=== PATIENT | male | born 1955 | race Caucasian/White ===

== ENCOUNTER 2023-12-14 11:52 | Observation (INO) ==
[2023-12-14 12:28] LABS: iSTAT Hemoglobin 15.3 g/dl (14.0-18.0); iSTAT Ionized Calcium 1.24 mmol/l (1.12-1.32); iSTAT Potassium 4.3 mmol/L (3.3-5.0)
[2023-12-14 12:34] LABS: Basophils # (auto) 0.03 K/uL (0.00-0.20); Basophils % (auto) 0.4 %; Eosinophils # (auto) 0.16 K/uL (0.00-0.50); Eosinophils % (auto) 2.2 %; Hematocrit (blood only) 45.6 % (42.0-52.0); Hemoglobin 14.9 g/dl (14.0-18.0); Immature Granulocytes # (auto) 0.02 K/uL (0.01-0.20); Immature Granulocytes % (auto) 0.3 %; Lymphocytes # (auto) 1.71 K/uL (1.20-3.40); Lymphocytes % (auto) 23.5 %; Mean Corpuscular Hgb Conc 32.7 g/dL (32.0-36.0); Mean Corpuscular Volume 88.7 fL (80.0-100.0); Mean Platelet Volume 10.1 fL (9.4-12.4); Monocytes # (auto) 0.48 K/uL (0.11-0.59); Monocytes % (auto) 6.6 %; Neutrophils # (auto) 4.88 K/uL (1.40-6.50); Platelet Count 215 K/uL (130-400); RDW Standard Deviation 42.3 fL (36.4-46.3); Red Blood Count 5.14 M/uL (4.70-6.10); White Blood Count 7.28 K/ul (4.8-10.8)
--- NOTE | 2023-12-14 12:35 | Emergency Department Note ---
Impression & Plan Right facial numbness, Hypertension, Stroke-like symptoms, Dizziness ED Provider Note NAME: WERNER GARCIA AGE: 68 SEX: M : 1955 ARRIVES VIA: Ambulance INFORMANT: [Patient][] ED PROVIDER(S): [Jairo Aguirre MD] CHIEF COMPLAINT: TIA symptoms HISTORY OF PRESENT ILLNESS: The patient is a 68-year-old male who states that 2-1/2 hours ago he was sitting at [facility]. He noticed some numbness to his right face. The patient got up and was walking around and felt his right leg may have been weaker than the left. EMS was summoned. His blood pressure was high, his blood sugar was high. He was brought to the ER. He does feel better than earlier. The patient states that he has been dizzy for a few weeks. He did see his doctor's office for the dizziness and was told that things were okay. Yesterday when driving to this area his right foot felt stiff and he had to stop driving and hand over the wheel to his . He did feel dizzy yesterday as well. Patient has no diagnosis of hypertension or diabetes. He has never had a stroke or TIA. As per nursing staff, stroke scale value was 0. PMHx/PSHx/Social Hx: See Below PHYSICAL EXAM: GENERAL: Patient is in no acute distress. HEENT: No acute trauma, normocephalic atraumatic, mucous membranes moist, no nasal congestion. NECK: No stridor, no adenopathy, no meningismus, trachea is midline. LUNGS: Clear to auscultation bilaterally, no wheeze, no rhonchi, breath sounds equal. HEART: Without murmurs gallops or rubs, regular rate and rhythm. ABDOMEN: Soft, nontender, no peritonitis. EXTREMITIES: No cyanosis, full range of motion of all the joints without pain or difficulty. NEUROLOGIC: Oriented x 3, no acute motor or sensory deficits, no focal weakness. No cerebellar deficits or extremity drift. No speech slur or facial droop. Excellent historian. SKIN: No jaundice, no diaphoresis. DIFFERENTIAL DIAGNOSIS: TIA, CVA, intracranial bleeding, hypertension, electrolyte imbalance, anemia, dysrhythmia, among others. EMERGENCY DEPARTMENT PROCEDURES: MEDICAL DECISION MAKING: There is no leukocytosis or concerning anemia. There is a normal platelet count. No coagulopathy. No renal failure or significant electrolyte abnormality. No concerning liver enzyme elevation. ECG shows a sinus rhythm, no dysrhythmia or ischemia. Cardiac enzyme testing x 1 is not consistent with acute cardiac injury. Brain CT shows no acute bleed or mass effect. CT angio of the head and neck were performed, there was no stenosis or clot seen. On exam, patient had a stroke scale value of 0. His numbness had greatly improved. He was hypertensive. The patient was not a candidate for TNK. His symptoms had improved, stroke scale value was 0, he actually has been complaining of some issues with dizziness for weeks--far greater than 3 hours. Patient did receive IV labetalol for his high blood pressure. He was eventually given a dose of IV hydralazine. As he passed his swallow study, he received oral aspirin 324 mg. I talked to the patient about his findings. I am concerned for a TIA or possible small stroke not seen on CT scan. I do think a hospital stay is warranted. Patient's blood pressure has improved with the medications administered. I did speak with the case management team, the on-call hospitalist has been consulted. Prior/Outside records/notes reviewed: Today's EMS notes describing his presentation and transport to this hospital. ECG per my interpretation: Indication was possible stroke. The ECG shows a normal sinus rhythm with a rate of 65. There is no ST elevation, no PVCs. The QTc is 384. Continuous Cardiac Monitoring per my interpretation: An order was placed for continuous cardiac monitoring. The monitor shows a rate of 67 with normal sinus rhythm. Imaging/x-ray results per my interpretation: Chronic Medical/Social conditions affecting care: Care/Management discussed with: Case management, the on-call hospitalist. Level of care consideration(s): After review of the information above and other included data: --I believe the patient requires escalation of care to admission Critical Care Note: I have personally spent 47 minutes of critical care time in the direct management of this patient. This includes bedside care, interpretation of diagnostic studies, and testing, discussion with consultants, patient, and family members, and other required patient management activities. This 47 minutes is in excess of all separately billable procedures. DISPOSITION: Admission Past Med/Surg History Medical History GERD (gastroesophageal reflux disease) Surgical History (Updated 12/14/23 @ 15:06 by CELSO Hansen) No pertinent past surgical history Family History (Updated 12/14/23 @ 15:56 by CELSO Hansen) Mother TIA (transient ischemic attack) Sister Deep vein thrombosis Social History Smoking Status: Never smoker Preferred Language: Hungarian Feels Safe at Home: Yes Allergies Allergies Allergy/AdvReac Type Severity Reaction Status Date / Time No Known Allergies Allergy Unverified 12/14/23 14:08 Home Meds Home Medications Medication Instructions Recorded Confirmed cetirizine 10 mg tablet (Zyrtec) 10 mg PO DAILY PRN Allergy Symptoms 12/14/23 12/14/23 omeprazole 40 mg capsule,delayed 40 mg PO DAILYBB 12/14/23 12/14/23 release Results & Data (ED) Vital Signs Vital Signs - 24 hr 12/14/23 11:57 12/14/23 12:02 12/14/23 12:57 Temperature 36.5 C Temperature Source Oral Pulse Rate 63 67 68 Pulse Rate [Left] Pulse Rhythm Regular Pulse Rhythm [Left] Pulse Strength Normal Pulse Strength [Left] Respiratory Rate 16 Respiratory Effort / Characteristics Non-Labored Respiratory Depth Normal Respiratory Pattern Regular Blood Pressure 170/119 H 168/101 H Blood Pressure [Right Arm] Blood Pressure Mean 136 Blood Pressure Mean [Right Arm] Blood Pressure Position Sitting Blood Pressure Position [Right Arm] Pulse Oximetry 100 Oxygen Delivery Method Room Air Sepsis Recent Fever Within 48 Hours No Sepsis New/Unexplained Change in Mental Status No Sepsis Action Taken by Nursing No Action Required 12/14/23 13:00 12/14/23 13:05 12/14/23 13:10 Temperature Temperature Source Pulse Rate Pulse Rate [Left] 64 66 61 Pulse Rhythm Pulse Rhythm [Left] Regular Regular Regular Pulse Strength Pulse Strength [Left] Normal Normal Normal Respiratory Rate 18 18 17 Respiratory Effort / Characteristics Non-Labored Non-Labored Non-Labored Respiratory Depth Normal Normal Normal Respiratory Pattern Regular Regular Regular Blood Pressure Blood Pressure [Right Arm] 178/109 H 158/101 H 151/102 H Blood Pressure Mean Blood Pressure Mean [Right Arm] 132 120 118 Blood Pressure Position Blood Pressure Position [Right Arm] Sitting Sitting Sitting Pulse Oximetry 98 98 98 Oxygen Delivery Method Room Air Room Air Room Air Sepsis Recent Fever Within 48 Hours Sepsis New/Unexplained Change in Mental Status Sepsis Action Taken by Nursing 12/14/23 13:20 Temperature Temperature Source Pulse Rate Pulse Rate [Left] 60 Pulse Rhythm Pulse Rhythm [Left] Regular Pulse Strength Pulse Strength [Left] Normal Respiratory Rate 18 Respiratory Effort / Characteristics Non-Labored Respiratory Depth Normal Respiratory Pattern Regular Blood Pressure Blood Pressure [Right Arm] 176/109 H Blood Pressure Mean Blood Pressure Mean [Right Arm] 131 Blood Pressure Position Blood Pressure Position [Right Arm] Sitting Pulse Oximetry 98 Oxygen Delivery Method Room Air Sepsis Recent Fever Within 48 Hours Sepsis New/Unexplained Change in Mental Status Sepsis Action Taken by Detention Medications Current Medication List: was personally reviewed by me Laboratory Data Attestation: I reviewed the patient's lab results. 12/14/23 12:08 12/14/23 12:08 Lab Results 12/14/23 12/14/23 Range/Units 12:08 12:15 WBC 7.28 (4.8-10.8) K/ul RBC 5.14 (4.70-6.10) M/uL Hgb 14.9 (14.0-18.0) g/dl POC Hgb 15.3 (14.0-18.0) g/dl Hct 45.6 (42.0-52.0) % POC Hct 45 (42-52) % MCV 88.7 (80.0-100.0) fL MCH 29.0 (25.0-34.0) pg MCHC 32.7 (32.0-36.0) g/dL RDW Std Deviation 42.3 (36.4-46.3) fL RDW Coeff of Winter 13.0 (11.5-14.5) % Plt Count 215 (130-400) K/uL MPV 10.1 (9.4-12.4) fL Immature Gran % (Auto) 0.3 % Neut % (Auto) 67.0 % Lymph % (Auto) 23.5 % Allen % (Auto) 6.6 % Eos % (Auto) 2.2 % Baso % (Auto) 0.4 % Neut # (Auto) 4.88 (1.40-6.50) K/uL Lymph # (Auto) 1.71 (1.20-3.40) K/uL Allen # (Auto) 0.48 (0.11-0.59) K/uL Eos # (Auto) 0.16 (0.00-0.50) K/uL Baso # (Auto) 0.03 (0.00-0.20) K/uL Immature Gran # (Auto) 0.02 (0.01-0.20) K/uL PT 11.0 (9.0-12.0) Seconds INR 1.0 (0.9-1.1) APTT 26 (21-31) Seconds PTT Ratio 1.0 POC Sodium 142 (135-144) mmol/L Sodium 142 (136-145) mmol/L POC Potassium 4.3 (3.3-5.0) mmol/L Potassium 4.2 (3.5-5.1) mmol/L POC Chloride 103 (101-112) mmol/L Chloride 107 (98-107) mmol/L Carbon Dioxide 30 (21-32) mmol/L POC Total CO2 28 (24-31) mmol/L Anion Gap 5 (3-11) POC Anion Gap 17.0 (16-25) mmol/L POC BUN 13 (7-18) mg/dl BUN 12 (6-23) mg/dl Creatinine 0.95 (0.6-1.4) mg/dl POC Creatinine 1.0 (0.6-1.3) mg/dl Est Cr Clr Drug Dosing 71.5 ml/min Est GFR ( Amer) 96.3 ml/min Est GFR (Non-Af Amer) 83.1 ml/min BUN/Creatinine Ratio 12.6 (10-20) Glucose 124 H (70-99(Fasting)) mg/dl POC Glucose (other) 148 H (70-99) mg/dl Calcium 9.1 (8.6-10.3) mg/dl POC Ioniz Calcium Susannah 1.24 (1.12-1.32) mmol/l Magnesium 2.0 (1.7-2.4) mg/dl Total Bilirubin 0.5 (0.2-1.0) mg/dl AST 16 (13-39) U/L ALT 15 (7-52) U/L Alkaline Phosphatase 63 (34-104) U/L Troponin I High Sens 4.5 (0-20) pg/ml Total Protein 6.7 (6.0-8.3) gm/dl Albumin 4.4 (3.4-5.0) gm/dl Globulin 2.3 L (2.5-4.0) gm/dl Albumin/Globulin Ratio 1.9 (0.9-2) Administered Medications Discontinued Medications Aspirin (Aspirin Chew 324 Mg) 324 mg PO NOW STA Stop: 12/14/23 13:53 Last Admin: 12/14/23 14:04 Dose: 324 mg Documented By: NH Hydralazine HCl (Hydralazine Hcl 20 Mg/Ml Vial) 10 mg IV NOW STA Stop: 12/14/23 13:53 Last Admin: 12/14/23 14:04 Dose: 10 mg Documented By: NH Ioversol (Optiray 320 125ml) 119 ml IV ONCE ONE Stop: 12/14/23 12:58 Last Admin: 12/14/23 12:57 Dose: 119 ml Documented By: MIRELLA Labetalol HCl (Labetalol Hcl Iv 5 Mg/Ml 20ml) 10 mg IV NOW STA Stop: 12/14/23 12:33 Last Admin: 12/14/23 12:57 Dose: 10 mg Documented By: SHARMIN Co-signed By: JAJA Imaging Data Radiologist's Impression: Head CT 12/14/23 12:[address] OF THE BRAIN; CT ANGIOGRAM OF THE BRAIN; CT ANGIOGRAM OF THE NECK CLINICAL HISTORY: Neurological deficit. Stroke like symptoms. Right-sided weakness. COMPARISON STUDY: No priors. TECHNIQUE: Unenhanced axial CT scan of the brain is performed. Subsequently, following the IV administration of 119 of Optiray 320, CT angiogram of the head and neck was performed from the aortic arch to the vertex. Images are reviewed in the axial, sagittal, and coronal planes. 3-D MIPS images are created and assessed. IV contrast was administered without complication. All measurements were calculated based on NASCET criteria. A dose lowering technique was utilized adhering to the principles of ALARA. CT DOSE: 1253.12 mGy.cm FINDINGS: Brain parenchyma: There is age-related involutional change noting mild to moderate subcortical and periventricular microangiopathic disease. There is no hemorrhage, mass effect, or evidence of acute territorial ischemia by CT criteria. There is no evidence of enhancing mass lesion on the angiogram phase images. The ventricles, sulci, and cisterns are prominent secondary to involutional change. Schaffer-white matter differentiation is preserved. No extra- axial fluid collection is seen. Thoracic aorta: Visualized portions of the thoracic aorta are normal in caliber. The aortic arch demonstrates 4-vessel variant anatomy. The left vertebral artery arises directly from the thoracic aorta. Right carotid arterial system: The right common carotid artery is widely patent, as are the right internal and external carotid arteries. Left carotid arterial system: The left common carotid artery is widely patent, as are the left internal and external carotid arteries. Minimal calcified plaque is seen in the carotid bulb. Vertebral arteries: Widely patent bilaterally noting right-sided dominance. Subclavian arteries: Widely patent bilaterally. Intracranial vasculature: The internal carotid arteries are patent at the skull base, as are the anterior and middle cerebral arteries bilaterally. The vertebrobasilar system and posterior cerebral arteries are widely patent. The right vertebral artery is dominant. There is origin of the right posterior cerebral artery. There is no aneurysm, high-grade stenosis, or focal vessel cut off seen throughout the intracranial circulation. Jugular veins: Patent bilaterally. Dural sinuses: Patent. Lung apices: Partially visualized upper lobe lung parenchyma appears clear. Soft tissues: The visualized pharyngeal soft tissues are normal in appearance noting angiographic phase technique. The oropharyngeal airway appears widely patent. The heterogeneous right lobe thyroid nodule measures up to 2.5 cm. The salivary glands are normal in appearance. No cervical lymphadenopathy is seen. Skeletal structures: The calvarium appears intact. The cervical spine is within normal limits. Orbits: The bony orbits are intact. Orbital contents are normal as visualized. Sinuses and mastoids: There is mild mucosal thickening within the maxillary antra noting air fluid level on the right. Mild mucosal thickening is also seen within the frontal and ethmoid sinuses. There is trace mucosal thickening in the sphenoid sinuses. The mastoid air cells are well pneumatized. IMPRESSION: 1. There is no hemorrhage, mass effect, or evidence of acute territorial ischemia by CT criteria. 2. Unremarkable CT angiogram of the brain. 3. Unremarkable CT angiogram of the neck. 4. There is a 2.5 cm right lobe thyroid nodule. A nonemergent thyroid ultrasound is recommended in follow-up. ACT 112: Negative or not required by law. Electronically signed by: Jairo Charles M.D. 12/14/2023 1:13 PM Head CTA 12/14/23 12:[address] OF THE BRAIN; CT ANGIOGRAM OF THE BRAIN; CT ANGIOGRAM OF THE NECK CLINICAL HISTORY: Neurological deficit. Stroke like symptoms. Right-sided weakness. COMPARISON STUDY: No priors. TECHNIQUE: Unenhanced axial CT scan of the brain is performed. Subsequently, following the IV administration of 119 of Optiray 320, CT angiogram of the head and neck was performed from the aortic arch to the vertex. Images are reviewed in the axial, sagittal, and coronal planes. 3-D MIPS images are created and assessed. IV contrast was administered without complication. All measurements were calculated based on NASCET criteria. A dose lowering technique was utilized adhering to the principles of ALARA. CT DOSE: 1253.12 mGy.cm FINDINGS: Brain parenchyma: There is age-related involutional change noting mild to moderate subcortical and periventricular microangiopathic disease. There is no hemorrhage, mass effect, or evidence of acute territorial ischemia by CT criteria. There is no evidence of enhancing mass lesion on the angiogram phase images. The ventricles, sulci, and cisterns are prominent secondary to involutional change. Schaffer-white matter differentiation is preserved. No extra- axial fluid collection is seen. Thoracic aorta: Visualized portions of the thoracic aorta are normal in caliber. The aortic arch demonstrates 4-vessel variant anatomy. The left vertebral artery arises directly from the thoracic aorta. Right carotid arterial system: The right common carotid artery is widely patent, as are the right internal and external carotid arteries. Left carotid arterial system: The left common carotid artery is widely patent, as are the left internal and external carotid arteries. Minimal calcified plaque is seen in the carotid bulb. Vertebral arteries: Widely patent bilaterally noting right-sided dominance. Subclavian arteries: Widely patent bilaterally. Intracranial vasculature: The internal carotid arteries are patent at the skull base, as are the anterior and middle cerebral arteries bilaterally. The vertebrobasilar system and posterior cerebral arteries are widely patent. The right vertebral artery is dominant. There is origin of the right posterior cerebral artery. There is no aneurysm, high-grade stenosis, or focal vessel cut off seen throughout the intracranial circulation. Jugular veins: Patent bilaterally. Dural sinuses: Patent. Lung apices: Partially visualized upper lobe lung parenchyma appears clear. Soft tissues: The visualized pharyngeal soft tissues are normal in appearance noting angiographic phase technique. The oropharyngeal airway appears widely patent. The heterogeneous right lobe thyroid nodule measures up to 2.5 cm. The salivary glands are normal in appearance. No cervical lymphadenopathy is seen. Skeletal structures: The calvarium appears intact. The cervical spine is within normal limits. Orbits: The bony orbits are intact. Orbital contents are normal as visualized. Sinuses and mastoids: There is mild mucosal thickening within the maxillary antra noting air fluid level on the right. Mild mucosal thickening is also seen within the frontal and ethmoid sinuses. There is trace mucosal thickening in the sphenoid sinuses. The mastoid air cells are well pneumatized. IMPRESSION: 1. There is no hemorrhage, mass effect, or evidence of acute territorial ischemia by CT criteria. 2. Unremarkable CT angiogram of the brain. 3. Unremarkable CT angiogram of the neck. 4. There is a 2.5 cm right lobe thyroid nodule. A nonemergent thyroid ultrasound is recommended in follow-up. ACT 112: Negative or not required by law. Electronically signed by: Jairo Charles M.D. 12/14/2023 1:13 PM Neck CTA 12/14/23 12:[address] OF THE BRAIN; CT ANGIOGRAM OF THE BRAIN; CT ANGIOGRAM OF THE NECK CLINICAL HISTORY: Neurological deficit. Stroke like symptoms. Right-sided weakness. COMPARISON STUDY: No priors. TECHNIQUE: Unenhanced axial CT scan of the brain is performed. Subsequently, following the IV administration of 119 of Optiray 320, CT angiogram of the head and neck was performed from the aortic arch to the vertex. Images are reviewed in the axial, sagittal, and coronal planes. 3-D MIPS images are created and assessed. IV contrast was administered without complication. All measurements were calculated based on NASCET criteria. A dose lowering technique was utilized adhering to the principles of ALARA. CT DOSE: 1253.12 mGy.cm FINDINGS: Brain parenchyma: There is age-related involutional change noting mild to moderate subcortical and periventricular microangiopathic disease. There is no hemorrhage, mass effect, or evidence of acute territorial ischemia by CT criteria. There is no evidence of enhancing mass lesion on the angiogram phase images. The ventricles, sulci, and cisterns are prominent secondary to involutional change. Schaffer-white matter differentiation is preserved. No extra- axial fluid collection is seen. Thoracic aorta: Visualized portions of the thoracic aorta are normal in caliber. The aortic arch demonstrates 4-vessel variant anatomy. The left vertebral artery arises directly from the thoracic aorta. Right carotid arterial system: The right common carotid artery is widely patent, as are the right internal and external carotid arteries. Left carotid arterial system: The left common carotid artery is widely patent, as are the left internal and external carotid arteries. Minimal calcified plaque is seen in the carotid bulb. Vertebral arteries: Widely patent bilaterally noting right-sided dominance. Subclavian arteries: Widely patent bilaterally. Intracranial vasculature: The internal carotid arteries are patent at the skull base, as are the anterior and middle cerebral arteries bilaterally. The vertebrobasilar system and posterior cerebral arteries are widely patent. The right vertebral artery is dominant. There is origin of the right posterior cerebral artery. There is no aneurysm, high-grade stenosis, or focal vessel cut off seen throughout the intracranial circulation. Jugular veins: Patent bilaterally. Dural sinuses: Patent. Lung apices: Partially visualized upper lobe lung parenchyma appears clear. Soft tissues: The visualized pharyngeal soft tissues are normal in appearance noting angiographic phase technique. The oropharyngeal airway appears widely patent. The heterogeneous right lobe thyroid nodule measures up to 2.5 cm. The salivary glands are normal in appearance. No cervical lymphadenopathy is seen. Skeletal structures: The calvarium appears intact. The cervical spine is within normal limits. Orbits: The bony orbits are intact. Orbital contents are normal as visualized. Sinuses and mastoids: There is mild mucosal thickening within the maxillary antra noting air fluid level on the right. Mild mucosal thickening is also seen within the frontal and ethmoid sinuses. There is trace mucosal thickening in the sphenoid sinuses. The mastoid air cells are well pneumatized. IMPRESSION: 1. There is no hemorrhage, mass effect, or evidence of acute territorial ischemia by CT criteria. 2. Unremarkable CT angiogram of the brain. 3. Unremarkable CT angiogram of the neck. 4. There is a 2.5 cm right lobe thyroid nodule. A nonemergent thyroid ultrasound is recommended in follow-up. ACT 112: Negative or not required by law. Electronically signed by: Jairo Charles M.D. 12/14/2023 1:13 PM Discharge Plan Visit Data Chief Complaint: TIA Symptoms Stated Complaint: TIA SYMPTOMS ED Provider: Jairo Aguirre Discharge Problem: Right facial numbness, Hypertension, Stroke-like symptoms, Dizziness Patient Disposition: Admitted As Inpatient Condition: Fair Discharge Instructions Interventions: ED Discharge Assessment Last Done: 12/14/23 15:43 Discharge Problem: Hypertension Qualifiers: Hypertension type: unspecified Qualified Code(s): I10 - Essential (primary) hypertension
[2023-12-14 12:37] LABS: Partial Thromboplastin Time 26 Seconds (21-31)
[2023-12-14 12:55] LABS: Albumin Globulin Ratio 1.9 (0.9-2); Albumin Level 4.4 gm/dl (3.4-5.0); BUN Creatinine Ratio 12.6 (10-20); Bilirubin,Total 0.5 mg/dl (0.2-1.0); Calcium 9.1 mg/dl (8.6-10.3); Creatinine Clr Calc Pharmacy 71.5 ml/min; Est GFR (African American) 96.3 ml/min; Est GFR (Non-African American) 83.1 ml/min; Globulin 2.3 gm/dl (2.5-4.0); Potassium 4.2 mmol/L (3.5-5.1); Total Protein 6.7 gm/dl (6.0-8.3)
[2023-12-14] MEDS: OPTIRAY 320 125ml IV ONE (12:57)
[2023-12-14] MEDS: LABETALOL HCL IV 5 MG/ML 20ML IV STA (12:57)
[2023-12-14 13:01] LABS: Troponin I High Sensitivity 4.5 pg/ml (0-20)
--- NOTE | 2023-12-14 13:14 | CT Scan Report ---
UNENHANCED CT OF THE BRAIN; CT ANGIOGRAM OF THE BRAIN; CT ANGIOGRAM OF THE NECK CLINICAL HISTORY: Neurological deficit. Stroke like symptoms. Right-sided weakness. COMPARISON STUDY: No priors. TECHNIQUE: Unenhanced axial CT scan of the brain is performed. Subsequently, following the IV adminis tration of 119 of [address] [address], CT angiogram of the head and neck was performed from the aortic arch t o the vertex. Images are reviewed in the axial, sagittal, and coronal planes. 3-D MIPS images are cre ated and assessed. IV contrast was administered without complication. All measurements were calculate d based on NASCET criteria. A dose lowering technique was utilized adhering to the principles of ALA RA. 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 There is no hemorrhage, mass effect, or evidence of acute ter ritorial ischemia by CT criteria. There is no evidence of enhancing mass lesion on the angiogram phas e images. The ventricles, sulci, and cisterns are prominent secondary to involutional change. Schaffer-wh ite matter differentiation is preserved. No extra-axial fluid collection is seen. Thoracic aorta: Visualized portions of the thoracic aorta are normal in caliber. The aortic arch demo nstrates 4-vessel variant anatomy. The left vertebral artery arises directly from the thoracic aorta. Right carotid arterial system: The right common carotid artery is widely patent, as are the right int ernal and external carotid arteries. Left carotid arterial system: The left common carotid artery is widely patent, as are the left exercise science internship al and external carotid arteries. Minimal calcified plaque is seen in the carotid bulb. Vertebral arteries: Widely patent bilaterally noting right-sided dominance. Subclavian arteries: Widely patent bilaterally. Intracranial vasculature: The internal carotid arteries are patent at the skull base, as are the ante rior and middle cerebral arteries bilaterally. The vertebrobasilar system and posterior cerebral idris joe are widely patent. The right vertebral artery is dominant. There is origin of the right po sterior cerebral artery. There is no aneurysm, high-grade stenosis, or focal vessel cut off seen thro ughout the intracranial circulation. Jugular veins: Patent bilaterally. Dural sinuses: Patent. Lung apices: Partially visualized upper lobe lung parenchyma appears clear. Soft tissues: The visualized pharyngeal soft tissues are normal in appearance noting angiographic pha se technique. The oropharyngeal airway appears widely patent. The heterogeneous right lobe thyroid no dule measures up to 2.5 cm. The salivary glands are normal in appearance. No cervical lymphadenopathy is seen. Skeletal structures: The calvarium appears intact. The cervical spine is within normal limits. Orbits: The bony orbits are intact. Orbital contents are normal as visualized. Sinuses and mastoids: There is mild mucosal thickening within the maxillary antra noting air fluid le eiljah on the right. Mild mucosal thickening is also seen within the frontal and ethmoid sinuses. There is trace mucosal thickening in the sphenoid sinuses. The mastoid air cells are well pneumatized. IMPRESSION: 1. There is no hemorrhage, mass effect, or evidence of acute territorial ischemia by CT criteria. 2. Unremarkable CT angiogram of the brain. 3. Unremarkable CT angiogram of the neck. 4. There is a 2.5 cm right lobe thyroid nodule. A nonemergent thyroid ultrasound is recommended in fo llow-up. ACT 112: Negative or not required by law. Electronically signed by: Jairo Charles M.D. 12/14/2023 1:13 PM
[2023-12-14] MEDS: hydrALAZINE HCL 20 MG/ML VIAL IV STA (14:04)
[2023-12-14] MEDS: ASPIRIN CHEW 324 MG PO STA (14:04)
--- NOTE | 2023-12-14 15:14 | History & Physical Report ---
Date of Service December 14, 2023 Assessment & Plan (1) Stroke-like symptoms: Plan: Admit to telemetry Patient presenting for evaluation of dizziness, right facial numbness, right leg ataxia; symptoms now mostly resolved. Saw PCP last week for complaints of dizziness and per patient "had normal blood work and exam". In the ED, patient hypertensive with BP 170/119 -received IV labetalol 10 mg and IV hydralazine [address], head and neck CTAs unremarkable Brain MRI - There is an equivocal punctate focus of restricted diffusion in the inferior right cerebellar hemisphere. This may be artifactual. A tiny acute to subacute lacunar infarct is not excluded. Check lipid panel and A1c with a.m. labs Echo Neurology consult, input appreciated S/p full dose aspirin in ED, continue with ASA 81 mg and Plavix 75 mg daily Start atorvastatin 40 mg Likely can add antihypertensive tomorrow, allowing for permissive hypertension for now Patient is from out [facility] ([place]), will need close follow-up (2) Thyroid nodule: Plan: Neck CTA shows 2.5 cm right lobe thyroid nodule Outpatient thyroid ultrasound (3) GERD (gastroesophageal reflux disease): Plan: Continue PPI DVT PROPHYLAXIS SCDs Patient seen in collaboration with Dr. Duvall. I spent a total of 90 minutes coordinating, documenting, and providing care for this patient excluding time spent in the performance of separately billed services. This included personally reviewing all current laboratories and imaging studies, medication reconciliation, outpatient chart review, and discussion with specialists. (4) Hypertension: History of Present Illness Chief Complaint: Strokelike symptoms Primary Care Provider: Waldemar Figueredo PA-C 68-year-old male with PMH GERD, seasonal allergies, who presents to the ED for evaluation of strokelike symptoms. History is obtained by the patient. Patient is visiting from out [facility] for graduation weekend. He states that about 2 weeks ago, he started to have episodes of dizziness. He was evaluated by his PCP last week and had a "normal exam and blood work" per the patient. Yesterday while driving from [place], patient reports his right foot started to feel heavy and "stiff" and had to stop driving. Patient reports feeling slightly "off" since yesterday. Today, around 1015 while attending a graduation ceremony, patient had stood up and noticed his right leg was uncoordinated when he tried to walk. He had to hold on to the wall to walk. He also reports the right side of his face was numb. EMS was called after the ceremony ended (around 1200) and patient was brought to the ED for further evaluation. Patient reports his symptoms have almost completely resolved however the right side of his face "f eels like Novocaine is wearing off". Patient denies chest pain, shortness of breath. No other recent illnesses, fevers, chills. Denies abdominal pain, nausea, vomiting, diarrhea. No urinary symptoms. In the ED, patient was hypertensive at 170/119. Labs are unremarkable. Head CT, head and neck CTAs unremarkable. Patient was given full dose aspirin, IV hydralazine 10 mg, IV labetalol 10 mg. Allergies Allergy/AdvReac Type Severity Reaction Status Date / Time No Known Allergies Allergy Unverified 12/14/23 14:08 Home Medications Medication Instructions Recorded Confirmed Type cetirizine 10 mg tablet (Zyrtec) 10 mg PO DAILY PRN Allergy Symptoms 12/14/23 12/14/23 History omeprazole 40 mg capsule,delayed 40 mg PO DAILYBB 12/14/23 12/14/23 History release Past Med/Surg History Medical History GERD (gastroesophageal reflux disease) Surgical History No pertinent past surgical history Family History Mother TIA (transient ischemic attack) Sister Deep vein thrombosis Social History Smoking Status: Never smoker Hx Alcohol Use: Yes Alcohol type: beer, wine and hard liquor Hx Substance Use: No Preferred Language: Swedish Communication Ability: Effective Sterilization Technician Required: No Beliefs That Will Affect Care: None Current Living Situation: Spouse Other Information That Helps Us Care for You: No Feels Safe at Home: Yes Safety Concerns: Feels Safe At This Time Assistive Devices: Glasses Physical Exam Constitutional: WD/WN, vitals as above no acute distress Eyes: PERRL, conjunctivae normal, anicteric sclerae ENMT: external ear and nose normal, oropharynx normal Respiratory: normal respiratory effort, lungs clear to auscultation Cardiovascular: Rate/Rhythm: regular rate and regular rhythm Vessels: normal peripheral pulses Extremities: no edema Gastrointestinal (Abdomen): normal bowel sounds, soft, nontender, no hepatosplenomegaly Musculoskeletal: no cyanosis or clubbing, extremities motor strength 5/5 Skin: no rashes, warm and dry Neurologic: PERRL, EOMI, accommodation nl, no face palsy, no dysarthria moves all extremities; no focal motor deficits Motor/Sensory: no pronator drift Cranial Nerves: tongue midline Coordination: normal [id number] test and normal nezf-[id number] test Psychiatric: A+Ox3, euthymic affect Results & Data Results & Data Vital Signs (Past 12 Hours) Vital Signs Temp Pulse Pulse Resp BP BP Pulse Ox 12/14/23 14:20 66 18 138/98 98 12/14/23 14:11 163/102 H 12/14/23 13:20 60 18 176/109 H 98 12/14/23 13:10 61 17 151/102 H 98 12/14/23 13:05 66 18 158/101 H 98 12/14/23 13:00 64 18 178/109 H 98 12/14/23 12:57 68 168/101 H 12/14/23 12:02 67 12/14/23 11:57 36.5 C 63 16 170/119 H 100 O2 Del Method 12/14/23 14:20 Room Air 12/14/23 14:11 12/14/23 13:20 Room Air 12/14/23 13:10 Room Air 12/14/23 13:05 Room Air 12/14/23 13:00 Room Air 12/14/23 12:57 12/14/23 12:02 12/14/23 11:57 Room Air Laboratory Results Short CBC 12/14/23 Range/Units 12:08 WBC 7.28 (4.8-10.8) K/ul Hgb 14.9 (14.0-18.0) g/dl Hct 45.6 (42.0-52.0) % Plt Count 215 (130-400) K/uL BMP 12/14/23 12:08 Sodium 142 Potassium 4.2 Chloride 107 Carbon Dioxide 30 BUN 12 Creatinine 0.95 Glucose 124 H Calcium 9.1 Liver Function 12/14/23 Range/Units 12:08 Total Bilirubin 0.5 (0.2-1.0) mg/dl AST 16 (13-39) U/L ALT 15 (7-52) U/L Alkaline Phosphatase 63 (34-104) U/L Albumin 4.4 (3.4-5.0) gm/dl Diagnostic Findings Head CT 12/14/23 12:[address] OF THE BRAIN; CT ANGIOGRAM OF THE BRAIN; CT ANGIOGRAM OF THE NECK CLINICAL HISTORY: Neurological deficit. Stroke like symptoms. Right-sided weakness. COMPARISON STUDY: No priors. TECHNIQUE: Unenhanced axial CT scan of the brain is performed. Subsequently, following the IV administration of 119 of Optiray 320, CT angiogram of the head and neck was performed from the aortic arch to the vertex. Images are reviewed in the axial, sagittal, and coronal planes. 3-D MIPS images are created and assessed. IV contrast was administered without complication. All measurements were calculated based on NASCET criteria. A dose lowering technique was utilized adhering to the principles of ALARA. CT DOSE: 1253.12 mGy.cm FINDINGS: Brain parenchyma: There is age-related involutional change noting mild to moderate subcortical and periventricular microangiopathic disease. There is no hemorrhage, mass effect, or evidence of acute territorial ischemia by CT c riteria. There is no evidence of enhancing mass lesion on the angiogram phase images. The ventricles, sulci, and cisterns are prominent secondary to involutional change. Schaffer-white matter differentiation is preserved. No extra- axial fluid collection is seen. Thoracic aorta: Visualized portions of the thoracic aorta are normal in caliber. The aortic arch demonstrates 4-vessel variant anatomy. The left vertebral artery arises directly from the thoracic aorta. Right carotid arterial system: The right common carotid artery is widely patent, as are the right internal and external carotid arteries. Left carotid arterial system: The left common carotid artery is widely patent, as are the left internal and external carotid arteries. Minimal calcified plaque is seen in the carotid bulb. Vertebral arteries: Widely patent bilaterally noting right-sided dominance. Subclavian arteries: Widely patent bilaterally. Intracranial vasculature: The internal carotid arteries are patent at the skull base, as are the anterior and middle cerebral arteries bilaterally. The vertebrobasilar system and posterior cerebral arteries are widely patent. The right vertebral artery is dominant. There is origin of the right posterior cerebral artery. There is no aneurysm, high-grade stenosis, or focal vessel cut off seen throughout the intracranial circulation. Jugular veins: Patent bilaterally. Dural sinuses: Patent. Lung apices: Partially visualized upper lobe lung parenchyma appears clear. Soft tissues: The visualized pharyngeal soft tissues are normal in appearance noting angiographic phase technique. The oropharyngeal airway appears widely patent. The heterogeneous right lobe thyroid nodule measures up to 2.5 cm. The salivary glands are normal in appearance. No cervical lymphadenopathy is seen. Skeletal structures: The calvarium appears intact. The cervical spine is within normal limits. Orbits: The bony orbits are intact. Orbital contents are normal as visualized. Sinuses and mastoids: There is mild mucosal thickening within the maxillary antra noting air fluid level on the right. Mild mucosal thickening is also seen within the frontal and ethmoid sinuses. There is trace mucosal thickening in the sphenoid sinuses. The mastoid air cells are well pneumatized. IMPRESSION: 1. There is no hemorrhage, mass effect, or evidence of acute territorial ischemia by CT criteria. 2. Unremarkable CT angiogram of the brain. 3. Unremarkable CT angiogram of the neck. 4. There is a 2.5 cm right lobe thyroid nodule. A nonemergent thyroid ultrasound is recommended in follow-up. ACT 112: Negative or not required by law. Electronically signed by: Jairo Charles M.D. 12/14/2023 1:13 PM Head CTA 12/14/23 12:[address] OF THE BRAIN; CT ANGIOGRAM OF THE BRAIN; CT ANGIOGRAM OF THE NECK CLINICAL HISTORY: Neurological deficit. Stroke like symptoms. Right-sided weakness. COMPARISON STUDY: No priors. TECHNIQUE: Unenhanced axial CT scan of the brain is performed. Subsequently, following the IV administration of 119 of Optiray 320, CT angiogram of the head and neck was performed from the aortic arch to the vertex. Images are reviewed in the axial, sagittal, and coronal planes. 3-D MIPS images are created and assessed. IV contrast was administered without complication. All measurements were calculated based on NASCET criteria. A dose lowering technique was utilized adhering to the principles of ALARA. CT DOSE: 1253.12 mGy.cm FINDINGS: Brain parenchyma: There is age-related involutional change noting mild to moderate subcortical and periventricular microangiopathic disease. There is no hemorrhage, mass effect, or evidence of acute territorial ischemia by CT criteria. There is no evidence of enhancing mass lesion on the angiogram phase images. The ventricles, sulci, and cisterns are prominent secondary to involutional change. Schaffer-white matter differentiation is preserved. No extra- axial fluid collection is seen. Thoracic aorta: Visualized portions of the thoracic aorta are normal in caliber. The aortic arch demonstrates 4-vessel variant anatomy. The left vertebral artery arises directly from the thoracic aorta. Right carotid arterial system: The right common carotid artery is widely patent, as are the right internal and external carotid arteries. Left carotid arterial system: The left common carotid artery is widely patent, as are the left internal and external carotid arteries. Minimal calcified plaque is seen in the carotid bulb. Vertebral arteries: Widely patent bilaterally noting right-sided dominance. Subclavian arteries: Widely patent bilaterally. Intracranial vasculature: The internal carotid arteries are patent at the skull base, as are the anterior and middle cerebral arteries bilaterally. The vertebrobasilar system and posterior cerebral arteries are widely patent. The right vertebral artery is dominant. There is origin of the right posterior cerebral artery. There is no aneurysm, high-grade stenosis, or focal vessel cut off seen throughout the intracranial circulation. Jugular veins: Patent bilaterally. Dural sinuses: Patent. Lung apices: Partially visualized upper lobe lung parenchyma appears clear. Soft tissues: The visualized pharyngeal soft tissues are normal in appearance noting angiographic phase technique. The oropharyngeal airway appears widely patent. The heterogeneous right lobe thyroid nodule measures up to 2.5 cm. The salivary glands are normal in appearance. No cervical lymphadenopathy is seen. Skeletal structures: The calvarium appears intact. The cervical spine is within normal limits. Orbits: The bony orbits are intact. Orbital contents are normal as visualized. Sinuses and mastoids: There is mild mucosal thickening within the maxillary antra noting air fluid level on the right. Mild mucosal thickening is also seen within the frontal and ethmoid sinuses. There is trace mucosal thickening in the sphenoid sinuses. The mastoid air cells are well pneumatized. IMPRESSION: 1. There is no hemorrhage, mass effect, or evidence of acute territorial ischemia by CT criteria. 2. Unremarkable CT angiogram of the brain. 3. Unremarkable CT angiogram of the neck. 4. There is a 2.5 cm right lobe thyroid nodule. A nonemergent thyroid ultrasound is recommended in follow-up. ACT 112: Negative or not required by law. Electronically signed by: Jairo Charles M.D. 12/14/2023 1:13 PM Neck CTA 12/14/23 12:[address] OF THE BRAIN; CT ANGIOGRAM OF THE BRAIN; CT ANGIOGRAM OF THE NECK CLINICAL HISTORY: Neurological deficit. Stroke like symptoms. Right-sided weakness. COMPARISON STUDY: No priors. TECHNIQUE: Unenhanced axial CT scan of the brain is performed. Subsequently, following the IV administration of 119 of Optiray 320, CT angiogram of the head and neck was performed from the aortic arch to the vertex. Images are reviewed in the axial, sagittal, and coronal planes. 3-D MIPS images are created and assessed. IV contrast was administered without complication. All measurements were calculated based on NASCET criteria. A dose lowering technique was utilized adhering to the principles of ALARA. CT DOSE: 1253.12 mGy.cm FINDINGS: Brain parenchyma: There is age-related involutional change noting mild to moderate subcortical and periventricular microangiopathic disease. There is no hemorrhage, mass effect, or evidence of acute territorial ischemia by CT criteria. There is no evidence of enhancing mass lesion on the angiogram phase images. The ventricles, sulci, and cisterns are prominent secondary to involutional change. Schaffer-white matter differentiation is preserved. No extra- axial fluid collection is seen. Thoracic aorta: Visualized portions of the thoracic aorta are normal in caliber. The aortic arch demonstrates 4-vessel variant anatomy. The left vertebral artery arises directly from the thoracic aorta. Right carotid arterial system: The right common carotid artery is widely patent, as are the right internal and external carotid arteries. Left carotid arterial system: The left common carotid artery is widely patent, as are the left internal and external carotid arteries. Minimal calcified plaque is seen in the carotid bulb. Vertebral arteries: Widely patent bilaterally noting right-sided dominance. Subclavian arteries: Widely patent bilaterally. Intracranial vasculature: The internal carotid arteries are patent at the skull base, as are the anterior and middle cerebral arteries bilaterally. The vertebrobasilar system and posterior cerebral arteries are widely patent. The right vertebral artery is dominant. There is origin of the right posterior cerebral artery. There is no aneurysm, high-grade stenosis, or focal vessel cut off seen throughout the intracranial circulation. Jugular veins: Patent bilaterally. Dural sinuses: Patent. Lung apices: Partially visualized upper lobe lung parenchyma appears clear. Soft tissues: The visualized pharyngeal soft tissues are normal in appearance noting angiographic phase technique. The oropharyngeal airway appears widely patent. The heterogeneous right lobe thyroid nodule measures up to 2.5 cm. The salivary glands are normal in appearance. No cervical lymphadenopathy is seen. Skeletal structures: The calvarium appears intact. The cervical spine is within normal limits. Orbits: The bony orbits are intact. Orbital contents are normal as visualized. Sinuses and mastoids: There is mild mucosal thickening within the maxillary antra noting air fluid level on the right. Mild mucosal thickening is also seen within the frontal and ethmoid sinuses. There is trace mucosal thickening in the sphenoid sinuses. The mastoid air cells are well pneumatized. IMPRESSION: 1. There is no hemorrhage, mass effect, or evidence of acute territorial ischemia by CT criteria. 2. Unremarkable CT angiogram of the brain. 3. Unremarkable CT angiogram of the neck. 4. There is a 2.5 cm right lobe thyroid nodule. A nonemergent thyroid ultrasound is recommended in follow-up. ACT 112: Negative or not required by law. Electronically signed by: Jairo Charles M.D. 12/14/2023 1:13 PM Brain MRI 12/14/23 14:10 MRI OF THE BRAIN WITHOUT IV CONTRAST CLINICAL HISTORY: Right facial numbness. Right leg weakness. COMPARISON STUDY: CT of the brain dated 12/14/2023. TECHNIQUE: MRI of the brain was performed utilizing various T1 and T2-weighted sequences in the axial, sagittal, and coronal planes. IV contrast was not administered for this examination. The examination is moderately degraded by motion artifact. FINDINGS: Brain parenchyma: There is age-related involutional change noting moderate subcortical and periventricular microangiopathic disease. There is no hemorrhage or mass effect. There is an equivocal punctate focus of restricted diffusion in the right cerebellar hemisphere seen on axial image #4. No additional foci of restricted diffusion are identified to indicate Acute ischemia. Schaffer-white matter differentiation is preserved. No extra-axial fluid collection is seen. T he cerebellar tonsils are normal in configuration. Ventricles, sulci, and cisterns: Prominent secondary to interval change. Pituitary and sella: Unremarkable. Intracranial vasculature: Normal flow voids are maintained at the skull base. Orbits: The bony orbits are grossly intact. Orbital contents are normal in appearance. Sinuses and mastoids: There is mild to moderate mucosal thickening right maxillary antrum with an air-fluid level. Trace mucosal thickening is seen in the left maxillary sinus, frontal sinuses, and ethmoid sinuses. The mastoid air cells are clear. Calvarium: Unremarkable. Cervical cord: Partially visualized cervical spinal cord is normal in morphology and signal intensity. IMPRESSION: 1. There is an equivocal punctate focus of restricted diffusion in the inferior right cerebellar hemisphere. This may be artifactual. A tiny acute to subacute lacunar infarct is not excluded. 2. No additional findings are suspicious for acute ischemia. 3. There is no hemorrhage or mass effect. ACT 112: Negative or not required by law. Electronically signed by: Jairo Charles M.D. 12/14/2023 5:22 PM Supervising Physician Co-Signing Physician Notes I have seen and examined the patient and have discussed the case with the provider above. I have reviewed the advanced practitioner's documentation, and I agree with, and take responsibility for that plan of care. 68 yo M with no formal diagnosis of hypertension presents with stroke like symptoms noted above. He reports a TUBBS since yesterday and vomiting 1-2 times including this evening. He reports some dizziness that is intermittent, but is able to ambulate through the room without much difficulty. On exam he is HD stable and has no gross focal neuro deficits aside from a sensation of burning on the right face compared with the left. Exam is otherwise unremarkable. Labs/Imaging/EKG/Meds reviewed. MRI with questionable cerebellar focus vs artifact. BP trend was elevated with some improvement later in the evening. He did initially receive parenteral antihypertensive therapy in the ER. Will allow permissive hypertension for now. Per neuro starting DAPT x 21 days and statin therapy. Cont supportive care. Echo in am. PT/OT consulted. Cont to monitor on telemetry. Lipid screening and A1C diabetic screening in am. Pt was in town for a graduation on Sunday. It would be expected that he can be discharged home in am after workup is complete. PCP is in [place]. Close followup in one week is recommended. DO Jadiel (4) Hypertension Hypertension type: unspecified Qualified Code(s): I10 - Essential (primary) hypertension
[2023-12-14] MEDS ORDERED: PHARMACIST DISCHARGE MED REC CONSULT PRN (15:43)
--- NOTE | 2023-12-14 17:25 | Magnetic Resonance Report ---
MRI OF THE BRAIN WITHOUT IV CONTRAST CLINICAL HISTORY: Right facial numbness. Right leg weakness. COMPARISON STUDY: CT of the brain dated 12/14/2023. TECHNIQUE: MRI of the brain was performed utilizing various T1 and T2-weighted sequences in the axial , sagittal, and coronal planes. IV contrast was not administered for this examination. The examinatio n is moderately degraded by motion artifact. FINDINGS: Brain parenchyma: There is age-related involutional change noting moderate subcortical and periventri cular microangiopathic disease. There is no hemorrhage or mass effect. There is an equivocal punctate focus of restricted diffusion in the right cerebellar hemisphere seen on axial image #4. No addition al foci of restricted diffusion are identified to indicate Acute ischemia. Schaffer-white matter differen tiation is preserved. No extra-axial fluid collection is seen. The cerebellar tonsils are normal in c onfiguration. Ventricles, sulci, and cisterns: Prominent secondary to interval change. Pituitary and sella: Unremarkable. Intracranial vasculature: Normal flow voids are maintained at the skull base. Orbits: The bony orbits are grossly intact. Orbital contents are normal in appearance. Sinuses and mastoids: There is mild to moderate mucosal thickening right maxillary antrum with an air -fluid level. Trace mucosal thickening is seen in the left maxillary sinus, frontal sinuses, and ethm oid sinuses. The mastoid air cells are clear. Calvarium: Unremarkable. Cervical cord: Partially visualized cervical spinal cord is normal in morphology and signal intensity . IMPRESSION: 1. There is an equivocal punctate focus of restricted diffusion in the inferior right cerebellar jack sphere. This may be artifactual. A tiny acute to subacute lacunar infarct is not excluded. 2. No additional findings are suspicious for acute ischemia. 3. There is no hemorrhage or mass effect. ACT 112: Negative or not required by law. Electronically signed by: Jairo Charles M.D. 12/14/2023 5:22 PM
--- NOTE | 2023-12-14 19:41 | Neurology Consultation ---
Date of Consultation December 14, 2023 Assessment & Plan (1) Stroke-like symptoms: Patient presents with multiple neurologic symptoms including dizziness and facial numbness in the setting of significant hypertension. I suspect his symptoms are secondary to hypertension vs TIA and not related to the artifact read by radiology in the R cerebellum. Regardless the most concerning feature of his imaging is the small vessel disease seen on flair sequence which is out of proportion to his age and known risk factors. I suspect he has had chronic longstanding HTN and with a random BG of 148 I await his HbA1c as he may have underlying diabetes as well. Would otherwise treat as if this were a TIA as his MRI indicates the need for vascular risk factor reduction. -- Aspirin 81mg daily and plavix 75mg daily for 21 days -- Lipitor 40mg daily, awaiting LDL, goal LDL <70 -- HbA1c pending -- Permissive HTN but would start lowering prior to discharge -- Echo pending -- Therapy evals -- Defer any further stroke testing to home PCP such as zio patch, sleep study, etc. Telehealth Consultation Telehealth Information Telehealth Information: I performed this visit using a real-time telehealth connection between my lo cation and the patients location ([facility]). After connecting through interactive tele-video, patient was identified by name and date of and/or wristband check.Patient (or authorized healthcare technical services representative) was informed that this was a telemedicine visit and it was being conducted confidentially over secure lines. My office door was closed and no one else was present in the room with me.Patient (or authorized healthcare technical services representative) provided consent to proceed with the visit, expressed an understanding of privacy and security of the telemedicine visit, and gave permission to have a hospital technical services representative in the room in order to assist with the visit and to conduct portions of the visit, as needed. I informed the patient (or authorized healthcare technical services representative) that I reviewed their record and presented the opportunity for them to ask any questions regarding the visit today. The patient agreed to participate. History of Present Illness Reason for Consultation: Stroke/TIA Requesting Physician: Dr. Duvall Attending Physician: Michelle Duvall, DO History of Present Illness Kiran Baird is a 68 yo M presenting from out of town with dizziness, R leg clumsiness and R foot numbness. These symptoms occurred while he was at a graduation ceremony. He reports that initially he noticed R facial numbness with burning of his R nostril. He then became dizzy and continues to feel unsteady if he were to walk. He reported that a few days ago his R foot was numb briefly as well. He did just see his PCP 2 weeks ago and was told everything was normal. He otherwise has taken no new medications, no new weakness, no recent falls. No history of stroke in the past. Allergies Allergy/AdvReac Type Severity Reaction Status Date / Time No Known Allergies Allergy Unverified 12/14/23 14:08 Home Medications Medication Instructions Recorded Confirmed Type cetirizine 10 mg tablet (Zyrtec) 10 mg PO DAILY PRN Allergy Symptoms 12/14/23 12/14/23 History omeprazole 40 mg capsule,delayed 40 mg PO DAILYBB 12/14/23 12/14/23 History release Patient History Medical History GERD (gastroesophageal reflux disease) Surgical History (Updated 12/14/23 @ 15:06 by CELSO Hansen) No pertinent past surgical history Family History (Updated 12/14/23 @ 15:56 by CELSO Hansen) Mother TIA (transient ischemic attack) Sister Deep vein thrombosis Social History Smoking Status: Never smoker Preferred Language: Yakut Feels Safe at Home: Yes Review of Systems +R facial numbness, dizziness Physical Exam Neurological Examination: Mental Status: Awake and alert. Oriented to person, place, and time. Fluent. Comprehension intact. Affect appropriate. Cranial Nerves: II: pupils 3/3 to 2/2 III/IV/: Versions intact without nystagmus, no gaze preference. V: Facial sensation symmetric to light touch VII: Facial expression symmetric VIII: Hearing intact to voice Motor: Strength was symmetric and antigravity throughout. Pronator drift was absent. There were no abnormal movements. Coordination: Finger to nose and heel to huerta were intact. Reflexes: Unable to assess over telemedicine Results & Data Vital Signs (Past 12 Hours) Vital Signs Temp Pulse Pulse Resp BP BP Pulse Ox 12/14/23 17:10 59 L 18 168/109 H 97 12/14/23 15:31 57 L 140/88 12/14/23 14:20 66 18 138/98 98 12/14/23 14:11 163/102 H 12/14/23 13:20 60 18 176/109 H 98 12/14/23 13:10 61 17 151/102 H 98 12/14/23 13:05 66 18 158/101 H 98 12/14/23 13:00 64 18 178/109 H 98 12/14/23 12:57 68 168/101 H 12/14/23 12:02 67 12/14/23 11:57 36.5 C 63 16 170/119 H 100 O2 Del Method 12/14/23 17:10 Room Air 12/14/23 15:31 12/14/23 14:20 Room Air 12/14/23 14:11 12/14/23 13:20 Room Air 12/14/23 13:10 Room Air 12/14/23 13:05 Room Air 12/14/23 13:00 Room Air 12/14/23 12:57 12/14/23 12:02 12/14/23 11:57 Room Air Laboratory Results Abnormal lab results 12/14/23 12/14/23 Range/Units 12:08 12:15 Glucose 124 H (70-99(Fasting)) mg/dl POC Glucose (other) 148 H (70-99) mg/dl Globulin 2.3 L (2.5-4.0) gm/dl Diagnostic Findings MRI brain - Significant white matter disease for age. Disagree with acute R cerebellar infarct, suspect artifact.
[2023-12-14] MEDS: ACETAMINOPHEN 325 MG TAB PO PRN (20:29)
[2023-12-14] MEDS: CLOPIDOGREL BISULFATE 75 MG TAB PO ONE ×2 (20:46→21:45)
[2023-12-14] MEDS: ATORVASTATIN 40 MG TAB PO SCH (20:46)
[2023-12-14] MEDS: ATORVASTATIN 40 MG TAB PO ONE (21:45)
[2023-12-15] MEDS: PROMETHAZINE HCL 6.25 MG in SODIUM CHLORIDE 0.9% 50 ML IV PRN (03:19)
[2023-12-15] MEDS: PANTOprazole 40 MG TAB PO SCH (06:08)
[2023-12-15 07:10] LABS: Hemoglobin 14.2 g/dl (14.0-18.0); Mean Corpuscular Hemoglobin 29.3 pg (25.0-34.0); Mean Corpuscular Hgb Conc 33.8 g/dL (32.0-36.0); Mean Corpuscular Volume 86.8 fL (80.0-100.0); Mean Platelet Volume 9.7 fL (9.4-12.4); Platelet Count 206 K/uL (130-400); RDW Coefficient of Variation 13.2 % (11.5-14.5); RDW Standard Deviation 41.2 fL (36.4-46.3); Red Blood Count 4.84 M/uL (4.70-6.10); White Blood Count 9.34 K/ul (4.8-10.8)
[2023-12-15 07:26] LABS: BUN Creatinine Ratio 11.5 (10-20); Calcium 8.9 mg/dl (8.6-10.3); Chol HDL Ratio 2.7 (0-5); Creatinine Clr Calc Pharmacy 80.8 ml/min; Est GFR (African American) 104.2 ml/min; Est GFR (Non-African American) 89.9 ml/min; Potassium 4.1 mmol/L (3.5-5.1)
[2023-12-15 07:39] LABS: Estimated Average Glucose 120 mg/dl; Hemoglobin A1C 5.8 % (4.5-5.6)
--- NOTE | 2023-12-15 07:57 | Discharge Summary ---
Discharge Summary Date of Service December 15, 2023 Notes For Next Care Provider Please followup on incidentally noted thyroid nodule with nonemergent thyroid ultrasound. please continue to monitor blood pressure and adjust antihypertensives as needed Please ensure followup with Neurology Please ensure followup with Cardiology for noted changes on echo Medication Changes From Visit Aspirin 81 mg daily and plavix 81mg daily x 21 days Lipitor 40mg daily Lisinopril 10mg daily Zofran 4mg q6h prn for N/V Admission HPI Per Admitting Provider 68-year-old male with PMH GERD, seasonal allergies, who presents to the ED for evaluation of strokelike symptoms. History is obtained by the patient. Patient is visiting from out of town for graduation weekend. He states that about 2 weeks ago, he started to have episodes of dizziness. He was evaluated by his PCP last week and had a "normal exam and blood work" per the patient. Yesterday while driving from [place], patient reports his right foot started to feel heavy and "stiff" and had to stop driving. Patient reports feeling slightly "off" since yesterday. Today, around 1015 while attending a graduation ceremony, patient had stood up and noticed his right leg was uncoordinated when he tried to walk. He had to hold on to the wall to walk. He also reports the right side of his face was numb. EMS was called after the ceremony ended (around 1200) and patient was brought to the ED for further evaluation. Patient reports his symptoms have almost completely resolved however the right side of his face "feels like Novocaine is wearing off". Patient denies chest pain, shortness of breath. No other recent illnesses, fevers, chills. Denies abdominal pain, nausea, vomiting, diarrhea. No urinary symptoms. In the ED, patient was hypertensive at 170/119. Labs are unremarkable. Head CT, head and neck CTAs unremarkable. Patient was given full dose aspirin, IV hydralazine 10 mg, IV labetalol 10 mg. Admission Exam Per Admitting Provider Constitutional: WD/WN, vitals as above no acute distress Eyes: PERRL, conjunctivae normal, anicteric sclerae ENMT: external ear and nose normal, oropharynx normal Respiratory: normal respiratory effort, lungs clear to auscultation Cardiovascular: Rate/Rhythm: regular rate and regular rhythm Vessels: normal peripheral pulses Extremities: no edema Gastrointestinal (Abdomen): normal bowel sounds, soft, nontender, no hepatosplenomegaly Musculoskeletal: no cyanosis or clubbing, extremities motor strength 5/5 Skin: no rashes, warm and dry Neurologic: PERRL, EOMI, accommodation nl, no face palsy, no dysarthria moves all extremities; no focal motor deficits Motor/Sensory: no pronator drift Cranial Nerves: tongue midline Coordination: normal bbdqqq-[id number] test and normal [id number]-[id number] test Psychiatric: A+Ox3, euthymic affect Principal Dx & Hospital Course #1 = Principal Diagnosis (1) Ambulatory dysfunction: (2) Stroke-like symptoms: (3) Thyroid nodule: (4) GERD (gastroesophageal reflux disease): (5) Hypertension: Plan Pt is a 68yoM with PMhx significant for GERD and seasonal allergies who presented with dizziness and facial numbness in the setting of significant hypertension. Pt is from out of town, visiting the area. TIA Hypertensive Urgency Pt presented with BP elevation with systolic blood pressures as high as 178 and diastolic blood pressures as high as 119 Also noted symptoms of dizziness and facial numbness Head CT, Head and neck CTA without acute changes Brain MRI with questionable acute/subacute infarct in R cerebellar hemisphere vs. artifact per Radiology Echo noted EF 55-60%, normal right systolic function with right ventricle mildly dilated, mild aortic regurgitation Hgba1c of 5.8 noting prediabetes Lipid panel normal Neurology was consulted, recommended the following: -symptoms likely in setting of uncontrolled hypertension vs. TIA -DAPT with aspirin 81mg and Plvix 75mg daily for 21 days -start Lipitor 40mg daily -Blood pressure control before discharge- pt was started on lisinopril 10mg daily, titrate further as needed -PCP follow up for further testing such as Zio patch and sleep testing as needed PT/OT also consulted, recommended home with walker (provided to patient at discharge), consider home PT/OT services as needed Neurology followup recommended after discharge Cardiology followup recommended for echocardiogram changes noted. Thyroid Nodule Noted incidentally on Head and neck CT imaging A 2.5 cm right lobe thyroid nodule was noted PCP followup for nonemergent thyroid ultrasound recommended in follow-up Prediabetes Hgba1c of 5.8 noted Diet and exercise changes to help PCP follow up Discharge Exam General: Alert, oriented. No acute distress Skin: No noted rashes or bruises Psych: Appropriate mood and affect Neuro: No gross deficits HEENT: NC/AT Chest: Nontender to palpation. CV: RRR Resp: Breath sounds clear bilaterally, no increased effort of breathing. Abdomen: Soft, nontender, nondistended. Extremities: No edema in lower extremities bilaterally. Updated Medication List Medication Instructions Recorded Confirmed Type cetirizine 10 mg tablet (Zyrtec) 10 mg PO DAILY PRN Allergy Symptoms 12/14/23 12/14/23 History omeprazole 40 mg capsule,delayed 40 mg PO DAILYBB 12/14/23 12/14/23 History release aspirin 81 mg tablet,delayed 81 mg PO HS #30 tabs 12/15/23 Rx release atorvastatin 40 mg tablet 40 mg PO HS #30 tabs 12/15/23 Rx clopidogrel 75 mg tablet 75 mg PO HS #30 tabs 12/15/23 Rx lisinopril 10 mg tablet 10 mg PO QAM #30 tabs 12/15/23 Rx ondansetron 4 mg disintegrating 4 mg PO Q6H PRN nausea and 12/15/23 Rx tablet vomiting #30 tabs Hospital Stay Data Consultations 12/14/23 14:08 ED Decision to Admit Stat 12/14/23 15:38 Consult Neurology Routine Diagnostic Imagining Performed 12/14/23 12:09 CT angio head w con Stat CT angio neck with con Stat CT head/brain wo con Stat 12/14/23 14:10 MRI Brain [MR brain wo con] Urgent Head CT 12/14/23 12:[address] OF THE BRAIN; CT ANGIOGRAM OF THE BRAIN; CT ANGIOGRAM OF THE NECK CLINICAL HISTORY: Neurological deficit. Stroke like symptoms. Right-sided weakness. COMPARISON STUDY: No priors. TECHNIQUE: Unenhanced axial CT scan of the brain is performed. Subsequently, following the IV administration of 119 of Optiray 320, CT angiogram of the head and neck was performed from the aortic arch to the vertex. Images are reviewed in the axial, sagittal, and coronal planes. 3-D MIPS images are created and ass essed. IV contrast was administered without complication. All measurements were calculated based on NASCET criteria. A dose lowering technique was utilized adhering to the principles of ALARA. CT DOSE: 1253.12 mGy.cm FINDINGS: Brain parenchyma: There is age-related involutional change noting mild to moderate subcortical and periventricular microangiopathic disease. There is no hemorrhage, mass effect, or evidence of acute territorial ischemia by CT criteria. There is no evidence of enhancing mass lesion on the angiogram phase images. The ventricles, sulci, and cisterns are prominent secondary to involutional change. Schaffer-white matter differentiation is preserved. No extra- axial fluid collection is seen. Thoracic aorta: Visualized portions of the thoracic aorta are normal in caliber. The aortic arch demonstrates 4-vessel variant anatomy. The left vertebral artery arises directly from the thoracic aorta. Right carotid arterial system: The right common carotid artery is widely patent, as are the right internal and external carotid arteries. Left carotid arterial system: The left common carotid artery is widely patent, as are the left internal and external carotid arteries. Minimal calcified plaque is seen in the carotid bulb. Vertebral arteries: Widely patent bilaterally noting right-sided dominance. Subclavian arteries: Widely patent bilaterally. Intracranial vasculature: The internal carotid arteries are patent at the skull base, as are the anterior and middle cerebral arteries bilaterally. The vertebrobasilar system and posterior cerebral arteries are widely patent. The right vertebral artery is dominant. There is origin of the right posterior cerebral artery. There is no aneurysm, high-grade stenosis, or focal vessel cut off seen throughout the intracranial circulation. Jugular veins: Patent bilaterally. Dural sinuses: Patent. Lung apices: Partially visualized upper lobe lung parenchyma appears clear. Soft tissues: The visualized pharyngeal soft tissues are normal in appearance noting angiographic phase technique. The oropharyngeal airway appears widely patent. The heterogeneous right lobe thyroid nodule measures up to 2.5 cm. The salivary glands are normal in appearance. No cervical lymphadenopathy is seen. Skeletal structures: The calvarium appears intact. The cervical spine is within normal limits. Orbits: The bony orbits are intact. Orbital contents are normal as visualized. Sinuses and mastoids: There is mild mucosal thickening within the maxillary antra noting air fluid level on the right. Mild mucosal thickening is also seen within the frontal and ethmoid sinuses. There is trace mucosal thickening in the sphenoid sinuses. The mastoid air cells are well pneumatized. IMPRESSION: 1. There is no hemorrhage, mass effect, or evidence of acute territorial ischemia by CT criteria. 2. Unremarkable CT angiogram of the brain. 3. Unremarkable CT angiogram of the neck. 4. There is a 2.5 cm right lobe thyroid nodule. A nonemergent thyroid ultrasound is recommended in follow-up. ACT 112: Negative or not required by law. Electronically signed by: Jairo Charles M.D. 12/14/2023 1:13 PM Head CTA 12/14/23 12:[address] OF THE BRAIN; CT ANGIOGRAM OF THE BRAIN; CT ANGIOGRAM OF THE NECK CLINICAL HISTORY: Neurological deficit. Stroke like symptoms. Right-sided weakness. COMPARISON STUDY: No priors. TECHNIQUE: Unenhanced axial CT scan of the brain is performed. Subsequently, following the IV administration of 119 of Optiray 320, CT angiogram of the head and neck was performed from the aortic arch to the vertex. Images are reviewed in the axial, sagittal, and coronal planes. 3-D MIPS images are created and assessed. IV contrast was administered without complication. All measurements were calculated based on NASCET criteria. A dose lowering technique was utilized adhering to the principles of ALARA. CT DOSE: 1253.12 mGy.cm FINDINGS: Brain parenchyma: There is age-related involutional change noting mild to moderate subcortical and periventricular microangiopathic disease. There is no hemorrhage, mass effect, or evidence of acute territorial ischemia by CT criteria. There is no evidence of enhancing mass lesion on the angiogram phase images. The ventricles, sulci, and cisterns are prominent secondary to involutional change. Schaffer-white matter differentiation is preserved. No extra- axial fluid collection is seen. Thoracic aorta: Visualized portions of the thoracic aorta are normal in caliber. The aortic arch demonstrates 4-vessel variant anatomy. The left vertebral artery arises directly from the thoracic aorta. Right carotid arterial system: The right common carotid artery is widely patent, as are the right internal and external carotid arteries. Left carotid arterial system: The left common carotid artery is widely patent, as are the left internal and external carotid arteries. Minimal calcified plaque is seen in the carotid bulb. Vertebral arteries: Widely patent bilaterally noting right-sided dominance. Subclavian arteries: Widely patent bilaterally. Intracranial vasculature: The internal carotid arteries are patent at the skull base, as are the anterior and middle cerebral arteries bilaterally. The vertebrobasilar system and posterior cerebral arteries are widely patent. The right vertebral artery is dominant. There is origin of the right posterior cerebral artery. There is no aneurysm, high-grade stenosis, or focal vessel cut off seen throughout the intracranial circulation. Jugular veins: Patent bilaterally. Dural sinuses: Patent. Lung apices: Partially visualized upper lobe lung parenchyma appears clear. Soft tissues: The visualized pharyngeal soft tissues are normal in appearance noting angiographic phase technique. The oropharyngeal airway appears widely patent. The heterogeneous right lobe thyroid nodule measures up to 2.5 cm. The salivary glands are normal in appearance. No cervical lymphadenopathy is seen. Skeletal structures: The calvarium appears intact. The cervical spine is within normal limits. Orbits: The bony orbits are intact. Orbital contents are normal as visualized. Sinuses and mastoids: There is mild mucosal thickening within the maxillary antra noting air fluid level on the right. Mild mucosal thickening is also seen within the frontal and ethmoid sinuses. There is trace mucosal thickening in the sphenoid sinuses. The mastoid air cells are well pneumatized. IMPRESSION: 1. There is no hemorrhage, mass effect, or evidence of acute territorial ischemia by CT criteria. 2. Unremarkable CT angiogram of the brain. 3. Unremarkable CT angiogram of the neck. 4. There is a 2.5 cm right lobe thyroid nodule. A nonemergent thyroid ultrasound is recommended in follow-up. ACT 112: Negative or not required by law. Electronically signed by: Jairo Charles M.D. 12/14/2023 1:13 PM Neck CTA 12/14/23 12:[address] OF THE BRAIN; CT ANGIOGRAM OF THE BRAIN; CT ANGIOGRAM OF THE NECK CLINICAL HISTORY: Neurological deficit. Stroke like symptoms. Right-sided weakness. COMPARISON STUDY: No priors. TECHNIQUE: Unenhanced axial CT scan of the brain is performed. Subsequently, following the IV administration of 119 of Optiray 320, CT angiogram of the head and neck was performed from the aortic arch to the vertex. Images are reviewed in the axial, sagittal, and coronal planes. 3-D MIPS images are created and assessed. IV contrast was administered without complication. All measurements were calculated based on NASCET criteria. A dose lowering technique was utilized adhering to the principles of ALARA. CT DOSE: 1253.12 mGy.cm FINDINGS: Brain parenchyma: There is age-related involutional change noting mild to moderate subcortical and periventricular microangiopathic disease. There is no hemorrhage, mass effect, or evidence of acute territorial ischemia by CT criteria. There is no evidence of enhancing mass lesion on the angiogram phase images. The ventricles, sulci, and cisterns are prominent secondary to involutional change. Schaffer-white matter differentiation is preserved. No extra- axial fluid collection is seen. Thoracic aorta: Visualized portions of the thoracic aorta are normal in caliber. The aortic arch demonstrates 4-vessel variant anatomy. The left vertebral artery arises directly from the thoracic aorta. Right carotid arterial system: The right common carotid artery is widely patent, as are the right internal and external carotid arteries. Left carotid arterial system: The left common carotid artery is widely patent, as are the left internal and external carotid arteries. Minimal calcified plaque is seen in the carotid bulb. Vertebral arteries: Widely patent bilaterally noting right-sided dominance. Subclavian arteries: Widely patent bilaterally. Intracranial vasculature: The internal carotid arteries are patent at the skull base, as are the anterior and middle cerebral arteries bilaterally. The vertebrobasilar system and posterior cerebral arteries are widely patent. The right vertebral artery is dominant. There is origin of the right posterior cerebral artery. There is no aneurysm, high-grade stenosis, or focal vessel cut off seen throughout the intracranial circulation. Jugular veins: Patent bilaterally. Dural sinuses: Patent. Lung apices: Partially visualized upper lobe lung parenchyma appears clear. Soft tissues: The visualized pharyngeal soft tissues are normal in appearance noting angiographic phase technique. The oropharyngeal airway appears widely patent. The heterogeneous right lobe thyroid nodule measures up to 2.5 cm. The salivary glands are normal in appearance. No cervical lymphadenopathy is seen. Skeletal structures: The calvarium appears intact. The cervical spine is within normal limits. Orbits: The bony orbits are intact. Orbital contents are normal as visualized. Sinuses and mastoids: There is mild mucosal thickening within the maxillary antra noting air fluid level on the right. Mild mucosal thickening is also seen within the frontal and ethmoid sinuses. There is trace mucosal thickening in the sphenoid sinuses. The mastoid air cells are well pneumatized. IMPRESSION: 1. There is no hemorrhage, mass effect, or evidence of acute territorial ischemia by CT criteria. 2. Unremarkable CT angiogram of the brain. 3. Unremarkable CT angiogram of the neck. 4. There is a 2.5 cm right lobe thyroid nodule. A nonemergent thyroid ultrasound is recommended in follow-up. ACT 112: Negative or not required by law. Electronically signed by: Jairo Charles M.D. 12/14/2023 1:13 PM Brain MRI 12/14/23 14:10 MRI OF THE BRAIN WITHOUT IV CONTRAST CLINICAL HISTORY: Right facial numbness. Right leg weakness. COMPARISON STUDY: CT of the brain dated 12/14/2023. TECHNIQUE: MRI of the brain was performed utilizing various T1 and T2-weighted sequences in the axial, sagittal, and coronal planes. IV contrast was not administered for this examination. The examination is moderately degraded by motion artifact. FINDINGS: Brain parenchyma: There is age-related involutional change noting moderate subcortical and periventricular microangiopathic disease. There is no hemorrhage or mass effect. There is an equivocal punctate focus of restricted diffusion in the right cerebellar hemisphere seen on axial image #4. No additional foci of restricted diffusion are identified to indicate Acute ischemia. Schaffer-white matter differentiation is preserved. No extra-axial fluid collection is seen. The cerebellar tonsils are normal in configuration. Ventricles, sulci, and cisterns: Prominent secondary to interval change. Pituitary and sella: Unremarkable. Intracranial vasculature: Normal flow voids are maintained at the skull base. Orbits: The bony orbits are grossly intact. Orbital contents are normal in appearance. Sinuses and mastoids: There is mild to moderate mucosal thickening right maxillary antrum with an air-fluid level. Trace mucosal thickening is seen in the left maxillary sinus, frontal sinuses, and ethmoid sinuses. The mastoid air cells are clear. Calvarium: Unremarkable. Cervical cord: Partially visualized cervical spinal cord is normal in morphology and signal intensity. IMPRESSION: 1. There is an equivocal punctate focus of restricted diffusion in the inferior right cerebellar hemisphere. This may be artifactual. A tiny acute to subacute lacunar infarct is not excluded. 2. No additional findings are suspicious for acute ischemia. 3. There is no hemorrhage or mass effect. ACT 112: Negative or not required by law. Electronically signed by: Jairo Charles M.D. 12/14/2023 5:22 PM Discharge Instructions Given to Patient (Per Discharging Provider) Mr. Baird, You were admitted with symptoms in the setting of uncontrolled blood pressure. You were seen by a neurologist who recommended that you continue with the medications aspirin 81mg and plavix 75mg for 21 days. We started you on a cholesterol medication called atorvastatin that you should take daily. We treated you with lisinopril 10mg daily for your high blood pressure. Your blood pressure improved. Please continue to take it daily and followup with your primary care provider for continued adjustments. Please use the zofran/ondansetron as needed to help with your nausea and vomiting. It was noted on imaging that you had a thyroid nodule. Please follow up with your primary care provider for further evaluation of that as recommended by Radiology. Your echocardiogram also noted some changes such as mild aortic regurgitation and a mildly dilated right ventricle. You will likely need Cardiology followup for this. Your primary care provider can refer you as needed. Again, please keep close follow up with your primary care provider after discharge. Please do not hesitate to go to the nearest emergency room if your symptoms worsen or return. It was a pleasure taking care of you while you were here. Total Time Total Time Spent Total Time Spent (In Minutes): > 30 minutes
[2023-12-15] MEDS ORDERED: ASPIRIN 81 MG ECTAB PO SCH ×2 (09:00→21:00)
[2023-12-15] MEDS ORDERED: CLOPIDOGREL BISULFATE 75 MG TAB PO SCH ×2 (09:00→21:00)
[2023-12-15] MEDS: lisinopril 10 MG TAB PO SCH (09:38)
[2023-12-15] MEDS: ONDANSETRON INJ 2 MG/ML 2 ML VIAL IV PRN (12:01)
[2023-12-15] MEDS: lisinopril 10 MG TAB PO ONE (13:45)
[2023-12-15] MEDS: STROKE PATIENT DISCHARGE STA (17:05)
[2023-12-15] MEDS ORDERED: ATORVASTATIN 40 MG TAB PO SCH (21:00)
--- NOTE | 2023-12-16 21:48 | Electrocardiogram Report ---
Test Reason : Blood Pressure : / mmHG Vent. Rate : 065 BPM Atrial Rate : 065 BPM P-R Int : 158 ms QRS Dur : 098 ms QT Int : 370 ms P-R-T Axes : 048 004 040 degrees QTc Int : 384 ms Normal sinus rhythm Normal ECG No previous ECGs available Confirmed by Mauri Harding ([id number]) on 12/16/2023 9:48:29 PM Referred By: REFERRED SELF Confirmed By:Mauri Harding
== END 2023-12-15 18:47 | disposition home health service (06) ==
LOC: ED 11:52 → EDINP 11:52 → SUATTDRO 14:10 → 2N 15:43